=== PATIENT | male | born 1955 | race Caucasian/White ===

== ENCOUNTER → 2019-05-22 10:59 | Outpatient (CLI) | payer MEDICARE, OTHER, SELFPAY ==
[2019-05-22 12:10] LABS: C-Reactive Protein Quant 2.2 mg/dL (<1.0)
[2019-05-22 12:39] LABS: Basophils Absolute Auto 0 /uL (0-100); Basophils Percent Auto 0.3 % (0-2); Eosinophils Absolute Auto 0 /uL (0-450); Eosinophils Percent Auto 0.5 % (2-4); Hematocrit 49.8 % (41-53); Hemoglobin 17.3 g/dL (13.5-17.5); Lymphocytes Absolute Auto 1000 /uL (1100-4500); Lymphocytes Percent Auto 13.3 % (25-40); Mean Corpuscular HGB Conc 34.8 % (30-36); Mean Corpuscular Hemoglobin 31.3 PG (26-34); Mean Corpuscular Volume 90.1 fL (80-100); Monocytes Absolute Auto 500 /uL (0-900); Monocytes Percent Auto 6.5 % (3-14); Neutrophils Absolute Auto 5800 /uL (1500-7000); Neutrophils Percent Auto 79.4 % (50-75); Platelet Count 243 X10^3/uL (150-400); Red Blood Cell Count 5.53 X10^6/uL (4.5-5.9); Red Cell Distribution Width 12.8 % (11.6-14.8); White Blood Cell Count 7.3 X10^3/uL (4.5-11.0)
[2019-05-22 12:58] LABS: Erythrocyte Sedimentation Rate 6 MM/HR (0-15)
[2019-05-22 13:06] LABS: Add Manual Diff / Slide Review SLIDE REVIEW; RBC Morphology Normal Morphology
== END ==
PROVIDERS: Referring Provider Orthopaedic Surgery; Visit Provider Orthopaedic Surgery
DX: L03.011 Cellulitis of right finger (principal); M79.644 Pain in right finger(s)
CPT/HCPCS: 36415; 85025; 85651; 86140

== ENCOUNTER 2019-05-23 15:37 | Observation (INO) | payer MEDICARE, OTHER, SELFPAY ==
[2019-05-22] VITALS (10 sets, daily range): BP systolic 114–137; BP diastolic 61–88; PULSE 69–80; RESP 12–20; TEMP 36.1–36.6; O2SAT 96–98; BMI 26.6
[2019-05-22] MEDS: LACTATED RINGERS 1,000 ML 42 ML IV (17:32)
--- NOTE | 2019-05-22 18:06 | PM.PREOP ---
Pre-operative Note Interval Note History & Physical reviewed/Exam performed by Physician: Yes Changes to H&P: No H&P completed within 30 days and has changed as indicated here:: Plan for right long finger irrigation and debridement with removal of finger nail. Plan for post-op abx and close follow up.
--- NOTE | 2019-05-22 18:51 | SUR.OPER ---
Supine on padded OR bed, head on pillow, nonoperative arm secured on padded arm boards at <90 degrees abduction, operative arm on hand table, legs uncrossed, safety belt at thigh, tape over blanket over lower legs.
[2019-05-22] MEDS: CEFAZOLIN 2 GM/100 ML FROZ.PIGGY IV (19:22)
[2019-05-22] MEDS: BUPIVACAINE 0.25% W/ EPI 30 ML VIAL INJ (19:30)
--- NOTE | 2019-05-22 19:40 | P.OP_ITS ---
Operative Date/Time/Diagnoses Date of procedure: 05/22/19 Time of procedure: 19:40 Pre-op diagnosis: Paronychia right long finger Post-op diagnosis: same Procedure & Clinicians Procedure: right long finger irrigation and debridement and fingernail removal Same procedure as scheduled: Yes Indications: large tense paronychia Surgeon: Pérez Shah Click Yes if Unassisted: Yes Anesthesia Type: General Operative Notes Findings: large paronychia right long finger Closure Type: primary Specimen(s): other (3x swabs) Estimated Blood Loss (mL): 5 Blood products transfused: none Procedure in detail: Patient was met in the preoperative holding area where the site and side of surgery were marked and the consent for surgery was reviewed and all questions were answered. Patient was then brought back in the operating room where he was placed on the operating room table and induced under general anesthesia. The right upper extremity then prepped and draped in normal sterile fashion. A surgical time- out was performed verifying the site and side of surgery as well as the name of the patient. An Esmarch was used as a wrist tourniquet. A 15 blade scalpel used to open up the paronychial fold at the edge of the nail. Several cc of gross purulence was expressed at this time. Three tissue swabs were sent for culture. The devascularized skin overlying the abscess pocket was removed with scissors and the nail was lifted from the nail bed with a cleaned pair of Metzenbaum scissors. At this point there are no deep pockets or areas of purulence that had not already been debrided. 1 L of normal saline was washed over the wound bed and scrubbed. [place] through the finger was soaked in Betadine for 2 minutes and then the rest of the normal saline was washed over the nail bed. The Esmarch was removed there are 2 small spots of brisk bleeding which were coagulated using electrocautery. 0 form dressing was then placed over the nail bed and 4 x 4 dressings were placed on the finger followed by a cast padding and a Coban dressing. Complications: none Post-operative Condition: stable Disposition: PACU Plan for aftercare: Patient will receive 24 hours of IV antibiotics plan will be for him to discharge home tomorrow with Keflex.
--- NOTE | 2019-05-22 21:04 | SUR.PHASEI ---
Patient taken to floor in good condition. Left in stable condition with receiving RN at bedside.
[2019-05-22] MEDS: ACETAMINOPHEN 325 MG TABLET 975 MG PO (21:25)
[2019-05-22] MEDS: LACTATED RINGERS 1,000 ML 125 ML IV (21:26)
[2019-05-23 00:10] VITALS: BP 122/74; PULSE 72; RESP 16; TEMP 36.5; O2SAT 96
[2019-05-23] MEDS: OXYCODONE IR 5 MG TABLET PO ×4 (02:08→18:47)
[2019-05-23] MEDS: CLINDAMYCIN 900 MG/50 ML PIGGYBACK 50 MG IV ×3 (02:30→18:47)
[2019-05-23 05:00] VITALS: BP 91/66; PULSE 73; RESP 16; TEMP 36.5; O2SAT 100
--- NOTE | 2019-05-23 05:31 | PC.NURSE ---
House Nurse Note: Resting in bed. Vital signs stable. Up to bathroom independently, voided. Dressing to rt middle finger is cdi. Rt hand is elevated on two pillows. Medicated for pain at 0208.
[2019-05-23] MEDS: LACTATED RINGERS 1,000 ML 125 ML IV (06:14)
[2019-05-23 07:35] LABS: Hemoglobin 15.6 g/dL (13.5-17.5); Mean Corpuscular HGB Conc 34.7 % (30-36); Mean Corpuscular Volume 89.4 fL (80-100); Platelet Count 223 X10^3/uL (150-400); Red Blood Cell Count 5.03 X10^6/uL (4.5-5.9); White Blood Cell Count 6.3 X10^3/uL (4.5-11.0)
[2019-05-23] MEDS: ACETAMINOPHEN 325 MG TABLET 975 MG PO ×2 (09:07→14:19)
[2019-05-23] MEDS: LOSARTAN 50 MG TABLET 125 MG PO (09:07)
--- NOTE | 2019-05-23 09:29 | PM.PNPO.1 ---
Subjective Subjective Date Patient Seen: 05/23/19 Time Patient Seen: 09:29 Interval history: POD #1 s/p right long finger irrigation and debridement and fingernail removal w Dr. Shah. Per patient, no pain in R hand. Complains of mild swelling in R index finger. Voiding without difficulty or assistance. Denies fever, chills, dry cough, chest pain, shortness of breath, nausea, vomiting, numbness, tingling. Exam Vital Signs (past 8 hours): - 05/23/19 05:00 Temperature 97.7 F Pulse Rate 73 Respiratory Rate 16 Blood Pressure 91/66 Pulse Oximetry 100 Oxygen Delivery Method Room Air Oxygen Flow Rate 0 Narrative Exam Narrative: 63 yo M is laying comfortably in bed, in no apparent distress. A&Ox3. Splint is CDI on R long finger. R index finger is mildly swollen. R hand skin is pink, warm, smooth to touch, no peripheral cyanosis. Capillary refill <2sec in all 5 digits. Radial pulse 2+ BL. Sensory function grossly intact to light touch in UE BL. Objective Labs Result Diagrams: 05/23/19 06:24 Labs: Laboratory Results - last 24 hr 05/23/19 06:24 WBC 6.3 RBC 5.03 Hgb 15.6 Hct 45.0 MCV 89.4 MCH 31.0 MCHC 34.7 RDW 13.0 Plt Count 223 Assessment & Plan Post-op Postoperative Procedures: Procedures Operation Date: 05/22/19 18:00 Actual Procedures Side Surgeon p Complex Incision and Drainage of felon , middle finger Right Pérez Shah MD Postoperative day: 1 Postoperative status: doing well Postoperative plan: discharge Postoperative plan narrative: Patient will discharge home today after completing 24h course of IV antibiotics Discharge home with Clindamycin 300mg QID x 2 weeks Pain control - tramadol 50mg q6h #15, ibuprofen 400mg and tylenol 500mg q4h PRN, ice and elevation He will follow up with Dr. Shah in 1 week Time Spent With Patient Time with patient: less than 15 minutes
--- NOTE | 2019-05-23 11:20 | CM.DANOTE ---
DCP assessment: EMR reviewed: Patient is a 63 yr old male who was admitted for cellulites of the right hand and fingers, went to surgery 05/22/[address] Shah. Patient does not currently have a PCP. CM/Rn gave patient PCP information for [facility], [facility] and [facility]. Cm/Rn met with patient at the bedside and explained role. Patient was alert and orientedX3 at time of visit. patient kevin was at the bedside and participated in D/C planning. I: medicare and commercial insurance Plan: D/C home with . Attend OP rehab for his had following post op appointment next Saturday. No identified D/C planning needs noted. CM department will follow to assist with any d/c planning needs that may arise. Katelin Barahona RN Discharge Planning/Care Management CM Discharge Assessment Start: 05/23/19 11:07 Freq: Status: Active Protocol: Document 05/23/19 11:08 HS (Rec: 05/23/19 11:19 HS [id number]) Discharge Planning Assessment Assigned Warehouse Worker Katelin Barahona RN DPOA/Assigned Designee Name Kevin Riggins () Contact Information [phone] Advance Directives? No History Provided By Patient,Medical Record Prior Living Arrangements House Household Members spouse Type of transporation used prior to Drives own vehicle admit Independent with ADL's Yes Is patient alert and oriented? Yes Caregiver for Another No Patient/Family Preference OP PT Therapy Discharge Plan Home Referrals Initiated None needed Whiteboard Updated in Patient Room with Yes name and ext. # of Warehouse Worker Review Status In Process Next Review Type Continued Stay Review
[2019-05-23 12:00] VITALS: BP 119/72; PULSE 81; RESP 16; TEMP 37.1; O2SAT 95
--- NOTE | 2019-05-23 14:04 | OT.IP.EVAL ---
Current Diagnoses Cellulitis of right finger (05/22/19) Surgery Performed Operation Date: 05/22/19 18:00 Actual Procedures p Complex Incision and Drainage of felyue , middle finger(Right) - Pérez Shah MD Occupational Therapy Inpatient Evaluation/Re-Eval M1 PT/OT-IP Prior Functional Status Start: 05/23/19 16:12 Freq: NEEDED Status: Active Protocol: Document 05/23/19 16:12 CGR (Rec: 05/23/19 16:21 CGR [id number]) Medical Review Prior Functional Status Communication Pt is an effective verbal communicator Mobility and Gait Pt was IND without AD Activities of Daily Living and IADL's Pt was IND without AD Social History Household Members spouse Living Arrangements House Number of Floors (Floors) Two Floors Number of Stairs To Enter/Railing? 17 stairs to enter with railing on L assending. Pt can stay on the main level once in. Home Environment Standard Height Toilet,Walk in Shower Employment Status Retired Additional Social History Comment Pt has a flat bed and is a retired [employer]. M2 OT-IP Current Condition Start: 05/23/19 16:12 Freq: Status: Active Protocol: Document 05/23/19 16:12 CGR (Rec: 05/23/19 16:21 CGR [id number]) Occupational Therapy Current Condition Current Condition Evaluation Date 05/23/19 Treatment Diagnosis I&D of R middle finger. Diagnosis Onset Date 05/22/19 M3 OT- IP Subjective and Pain Start: 05/23/19 16:12 Freq: Status: Active Protocol: Document 05/23/19 16:12 CGR (Rec: 05/23/19 16:21 CGR [id number]) OT- Subjective Occupational Therapy Visit Type Type Initial Evaluation Visit Start Time 13:40 Visit Stop Time 14:04 Total Visit Minutes 24 OT Pain Assessment Pain When Pain Assessed At Rest Pain Present Pain Present Pain Reported Location right middle finger Intensity 2 Scale Used Numeric (1 - 10) Management Techniques Elevation,Modification of Treatment,Timing of Activity with Medications M4 OT- IP ADL's Start: 05/23/19 16:12 Freq: Status: Active Protocol: Document 05/23/19 16:12 CGR (Rec: 05/23/19 16:21 CGR [id number]) OT [id number] Comments OT Self-Feeding Comments Not meal time OT ADL-Grooming Comments OT Grooming Comments Pt simulated Ind with washing face and brushing hair. OT ADL-Oral Care Comments Oral Care Comments Pt simulated IND with brushing teeth. OT ADL-Dressing General Eval Upper Body Dressing Ability Independent Lower Body Dressing Ability Independent OT ADL-Toileting General Evaluation Toileting Ability Independent OT ADL-Bathing Comments OT Bathing Comments Not performed in this session. M5 OT- IP IADL's Start: 05/23/19 16:12 Freq: Status: Active Protocol: Document 05/23/19 16:12 CGR (Rec: 05/23/19 16:21 CGR [id number]) OT-Instrumental Activities of Daily Living Deficits IADL Deficits Identified No Deficits Home Safety Awareness Awareness of Need for Assistance at Home Good Awareness Ability to Problem Solve Emergency Able to Problem Solve Situations Medication Management Medication Management No Deficits Identified Money Management Money Management No Deficits Identified Meal Preparation Meal Preparation No Deficits Identified Operations Controller Operations Controller No Deficits Identified M6 OT- IP Functional Cognition Start: 05/23/19 16:12 Freq: Status: Active Protocol: Document 05/23/19 16:12 CGR (Rec: 05/23/19 16:21 CGR [id number]) Cognitive Factors Limiting Selfcare Function Cognitive Ability Level of Alertness Alert Patient Orientation Name,Age,Birthday,Month,Date, Year,Day of Week,Place, Situation Attention Span Ability Capable of Focused Attention, Capable of Sustained Attention Ability to Follow Commands Able to Follow Multi-Step Commands Memory Description No Deficits Noted Safety Awareness No Deficits Noted Problem Solving Ability No deficits Noted OT- Vision and Hearing OT- Hearing Assessment OT- Hearing Assessment WFL OT- Vision Assessment Visual Acuity Glasses All The Time Visual Attentiveness WFL Occular Pursuits WFL Visual Convergence WFL Visual [place] WFL Vision Assessment Comments Pt has transition bifocals. M7 OT- IP Mobility and Balance Start: 05/23/19 16:12 Freq: Status: Active Protocol: Document 05/23/19 16:12 CGR (Rec: 05/23/19 16:21 CGR [id number]) OT- Bed Mobility Assessment Rolling Type of Rolling Roll to Right Level of Assistance Independent Supine to Sit Supine to Sit Assist Independent Scooting Scooting to Edge of Bed Independent OT-Transfer Assessment Sit to and From Stand Sit to and from Stand Independent Transfers Transfer Ability Independent Technique Transfer Destination Bed,Chair,Toilet Transfer Technique Stand Step Pivot Comments Mobility Comments No mobility concerns OT- Gait Assessment Gait Gait Assistance Required: Independent Comments Gait Ability Comments No mobility concerns OT- Balance Assessment Sitting Balance and Reactions Static Sitting Balance Ability Normal Dynamic Sitting Balance Ability Normal Standing Balance and Reactions Static Standing Balance Ability Normal Dynamic Standing Balance Ability Normal M8 OT- IP Objective Assessments Start: 05/23/19 16:12 Freq: Status: Active Protocol: Document 05/23/19 16:12 CGR (Rec: 05/23/19 16:21 CGR [id number]) OT Gross Range of Motion Upper Extremity Range of Motion Assessment Within Functional Limits ROM Impairments with the exception of the R middle finger as it is wrapped in gauze OT Strength Upper Extremity Strength Assessment Within Functional Limits Comments Strength Comments grossly 4+/5 OT- Coordination Assessment Upper Extremity Finger to Nose Test Within Functional Limits Finger Tapping Test Within Functional Limits OT-Muscle Tone Assessment Muscle Tone WNL Yes OT Sensation Assessment Edema Edema Absent M9 OT- IP Assessment and Plan Start: 05/23/19 16:12 Freq: Status: Active Protocol: Document 05/23/19 16:12 CGR (Rec: 05/23/19 16:21 CGR [id number]) OT Summary Assessment and Plan Potential Rehabilitation Potential Excellent Analytic Complexity at Evaluation Low Summary OT Impairments Pain,Range of Motion,Strength, Coordination Progress Towards Goals Progressing Toward Goals,Safe For Discharge Assessment Summary Pt presents as a low complexity evaluation s/p I&D to the R middle finger. Pt now getting IV antibiotics. Educated on hand exercises to maintain ROM and scar management once the wound is healed. Pt states understanding. No further OT needs. Frequency of Treatment Frequency Of Treatment Discharge Discharge Recommendations OT Discharge Recommendations Home Transportation Needs at Discharge Private Vehicle
--- NOTE | 2019-05-23 14:35 | PC.NURSE ---
Patient resting in chair. A/Ox3. IV rate changed to TKO, maintained d/t difficulty flushing after ABX administration. Patient is taking fluids orally. PRN pain medication administered. Right hand is still swollen, dsg is CDI, patient c/o slight numbness in right ring finger. Hand elevated on two pillows to minimize swelling. Patient is afebrile, vital signs are WNL.
--- NOTE | 2019-05-23 15:16 | PT-IP ANOTE ---
received PT eval order and reviewed EMR. pt is in the hospital s/p R middle finger I&D. per nurses' note, pt is SBA with mobility in room without AD. Talked pt PA regarding pt's specific PT needs and stated that he does not think pt needs PT. informed PA that if the doctor wants therapy for the finger or ADL needs, pt will need OT eval order. PA stated that he will discharge PT eval order. Checked on PT eval order and PA completed the order. No PT indicated at this time.
[2019-05-23 15:40] VITALS: BP 118/63; PULSE 75; RESP 16; TEMP 36.6; O2SAT 95
[2019-05-23 19:30] VITALS: BP 138/70; PULSE 77; RESP 17; TEMP 36.7; O2SAT 98
--- NOTE | 2019-05-23 20:55 | PC.NURSE ---
Patient was discharged via private car with . Discharge instructions, including need to follow up in [address] Shah, given to patient and . Belongings collected by . IV removed intact, no tele present. No complaints of pain at discharge.
== END 2019-05-23 20:15 | disposition home or self-care (01) ==
LOC: OR 05-24 07:56
PROVIDERS: Admitting Provider Orthopaedic Surgery Adult Reconstructive Orthopaedic Surgery; Referring Provider Orthopaedic Surgery Adult Reconstructive Orthopaedic Surgery; Visit Provider Orthopaedic Surgery Adult Reconstructive Orthopaedic Surgery
PROC: (CPT 11720; principal; 2019-05-22 18:00)
DX: L03.011 Cellulitis of right finger (principal); I10 Essential (primary) hypertension; M79.644 Pain in right finger(s)
CPT/HCPCS: 11720; 36415; 85025; 85027; 85651; 86140; 87070; 87075; 87077; 87186; 87205; 97110; 97165; G0378; J0690; J1885; J2250; J2704; J3010

== ENCOUNTER → 2019-10-14 14:02 | Outpatient (CLI) | payer MEDICARE, OTHER, SELFPAY ==
[2019-05-22 21:11] VITALS: BMI 26.6
[2019-10-14 15:06] LABS: Add Manual Diff / Slide Review NO; Basophils Absolute Auto 0 /uL (0-100); Basophils Percent Auto 0.5 % (0-2); Eosinophils Absolute Auto 0 /uL (0-450); Eosinophils Percent Auto 0.7 % (2-4); Hematocrit 52.9 % (41-53); Hemoglobin 18.5 g/dL (13.5-17.5); Lymphocytes Absolute Auto 1900 /uL (1100-4500); Lymphocytes Percent Auto 26.2 % (25-40); Mean Corpuscular Hemoglobin 31.2 PG (26-34); Mean Corpuscular Volume 89.3 fL (80-100); Monocytes Absolute Auto 600 /uL (0-900); Monocytes Percent Auto 7.9 % (3-14); Neutrophils Absolute Auto 4700 /uL (1500-7000); Neutrophils Percent Auto 64.7 % (50-75); Platelet Count 202 X10^3/uL (150-400); Red Blood Cell Count 5.92 X10^6/uL (4.5-5.9); Red Cell Distribution Width 12.8 % (11.6-14.8); White Blood Cell Count 7.2 X10^3/uL (4.5-11.0)
[2019-10-14 15:14] LABS: Hemoglobin A1C% w Est Avg Glu 5.3 % (4.0-6.0)
[2019-10-14 15:19] LABS: Alanine Aminotransferase 38 IU/L (<50); Albumin Globulin Ratio 1.7 (1.0-2.8); Alkaline Phosphatase 85 U/L (38-126); Aspartate Aminotransferase 30 IU/L (17-59); BUN Creatinine Ratio 27.1 (6-22); Bilirubin Total 1.3 mg/dL (0.2-1.3); Blood Urea Nitrogen 23 mg/dL (9-20); Calcium 10.6 mg/dL (8.4-10.2); Carbon Dioxide 27 mmol/L (22-32); Chloride 98 mmol/L (98-107); Cholesterol 231 mg/dL (140-199); Estimated Glomerular Filt Rate > 60.0 mL/min (>60); Glucose 96 mg/dL (80-110); HDL Cholesterol 43 mg/dL (40-60); HEMOLYSIS < 15 (0-50); LDL Cholesterol Calculated 140 mg/dL (<100); Potassium 4.3 mmol/L (3.4-5.1); Sodium 136 mmol/L (137-145); Triglycerides 241 mg/dL (35-150)
[2019-10-14 15:48] LABS: Prostate Specific Antigen Scrn 1.17 ng/mL (0.1-4.0)
[2019-10-14 15:50] LABS: TSH w/ Reflex to FT4 2.16 uIU/mL (0.47-4.68)
== END ==
PROVIDERS: Referring Provider Family Medicine; Visit Provider Family Medicine
DX: E78.5 Hyperlipidemia, unspecified (principal); I10 Essential (primary) hypertension; R10.9 Unspecified abdominal pain; Z12.5 Encounter for screening for malignant neoplasm of prostate; Z13.220 Encounter for screening for lipoid disorders; Z13.228 Encounter for screening for other metabolic disorders; Z13.29 Encounter for screening for other suspected endocrine disorder; Z76.89 Persons encountering health services in other specified circumstances
CPT/HCPCS: 36415; 80053; 80061; 83036; 84443; 85025; G0103

== ENCOUNTER → 2019-12-17 08:12 | Outpatient (CLI) | payer MEDICARE, OTHER, SELFPAY ==
[2019-05-22 21:11] VITALS: BMI 26.6
--- NOTE | 2019-12-17 08:13 | DI.US.S_ITS ---
PROCEDURE: US ABDOMEN COMPLETE INDICATIONS: ABDOMEN AND PELVIC PAIN TECHNIQUE: Real-time scanning was performed of the abdominal and retroperitoneal organs, with image documentation. COMPARISON: None. FINDINGS: Liver: Liver is normal in size and homogeneous in echotexture. Gallbladder: Gallbladder is sonographically normal. No gallstones. No gallbladder wall thickening. No pericholecystic fluid. No sonographic Villarreal sign. Biliary ducts: Intrahepatic bile ducts are non-dilated. Extrahepatic bile duct caliber measures 2.5 mm. Normal is 6-7 mm or less in diameter, or 10 mm or less post-cholecystectomy. Pancreas: Visualized portions of the pancreas are sonographically normal. Spleen: Spleen is normal in size and homogeneous in echotexture. Kidneys: Kidneys are normal in size and echotexture. Right kidney measures 10.3 cm long; left kidney measures 11.2 cm long. No hydronephrosis or nephrolithiasis. No solid masses. 1.0 x 0.7 x 1.5 centimeter complex cyst noted in the midpole of the left kidney. Aorta: Visualized aorta is normal in caliber at less than 3 cm. Iliacs: Proximal common iliac arteries are normal in caliber at less than 2.5 cm. IVC: Intrahepatic inferior vena cava is patent. Miscellaneous: No free abdominal fluid. IMPRESSION: 1. No sonographic evidence of cholelithiasis or cholecystitis. 2. No hydronephrosis. 3. 1.1 x 0.7 x 1.5 centimeter complex left renal cyst. Recommend CT scan of the abdomen with and without contrast (renal protocol) for definitive characterization Dictated by: Lu Gillespie MD, PhD on 12/17/2019 at 17:07 Approved by: Lu Gillespie MD, PhD on 12/17/2019 at 17:08
== END ==
PROVIDERS: PCP Family Medicine; Referring Provider Registered Nurse; Visit Provider Registered Nurse
DX: R10.9 Unspecified abdominal pain (principal); N28.1 Cyst of kidney, acquired
CPT/HCPCS: 76700

== ENCOUNTER → 2019-12-23 10:29 | Outpatient (CLI) | payer MEDICARE, OTHER, SELFPAY ==
[2019-05-22 21:11] VITALS: BMI 26.6
[2019-12-23 11:40] LABS: BUN Creatinine Ratio 20.4 (6-22); Blood Urea Nitrogen 20 mg/dL (9-20); Estimated Glomerular Filt Rate > 60.0 mL/min (>60)
[2019-12-23 11:56] LABS: Alanine Aminotransferase 40 IU/L (<50); Albumin Globulin Ratio 1.6 (1.0-2.8); Alkaline Phosphatase 91 U/L (38-126); Aspartate Aminotransferase 30 IU/L (17-59); BUN Creatinine Ratio 21.9 (6-22); Blood Urea Nitrogen 21 mg/dL (9-20); Calcium 10.3 mg/dL (8.4-10.2); Carbon Dioxide 31 mmol/L (22-32); Chloride 100 mmol/L (98-107); Estimated Glomerular Filt Rate > 60.0 mL/min (>60); Globulin 3.1 g/dL (1.7-4.1); Glucose 106 mg/dL (80-110); HEMOLYSIS < 15 (0-50); Potassium 4.7 mmol/L (3.4-5.1); Sodium 139 mmol/L (137-145); Total Protein 8.1 g/dL (6.3-8.2)
== END ==
PROVIDERS: PCP Family Medicine; Referring Provider Registered Nurse; Visit Provider Registered Nurse
DX: I10 Essential (primary) hypertension (principal); R10.9 Unspecified abdominal pain
CPT/HCPCS: 36415; 80053; 82565; 84520

== ENCOUNTER → 2019-12-24 11:39 | Outpatient (CLI) | payer MEDICARE, OTHER, SELFPAY ==
[2019-05-22 21:11] VITALS: BMI 26.6
--- NOTE | 2019-12-24 11:40 | DI.CT.S_ITS ---
PROCEDURE: CT ABDOMEN WO/W CON INDICATIONS: abdominal pain TECHNIQUE: Optional 5 mm thick noncontrast images acquired from the diaphragm to the iliac crests. After the administration of intravenous contrast, 5 mm thick images again acquired from the diaphragm to the iliac crests in the arterial and urographic phases. 5 mm thick coronal and sagittal reformats were then acquired. For radiation dose reduction, the following was used: automated exposure control, adjustment of mA and/or kV according to patient size. COMPARISON: [facility], US, US ABDOMEN COMPLETE, 12/17/2019, 8:46. FINDINGS: Image quality: Excellent. Lung bases: Lung bases are clear. Heart size is normal. Genitourinary: No intrarenal calcifications. The kidneys demonstrate horseshoe morphology with a small tissue bridge at the level of the aortic bifurcation. No evidence of hydronephrosis. There are a few small cortical cysts arising from each upper pole moiety. The largest cyst measures about 11 mm and is in the left midpole, potentially the lesion detected by ultrasound. No solid renal lesions. There is symmetric uptake and excretion of IV contrast. The ureters are nondilated. Other solid organs: Liver is normal in size and enhancement. Gallbladder is normal . Biliary system is non dilated. Pancreas enhances normally. Spleen is normal in size and enhancement. No adrenal nodules. Peritoneum and bowel: Unenhanced bowel loops are normal in wall thickness and caliber. Normal partially imaged appendix. No free fluid or air. Nodes and vessels: No retroperitoneal or mesenteric adenopathy by size criteria. Aorta and inferior vena cava are normal in caliber. Moderate abdominal aortic atherosclerotic calcification. Bones: No suspicious bony lesions. No vertebral body compression fractures. Degenerative changes in the spine. Miscellaneous: No ventral hernias. IMPRESSION: 1. The structure which appears to correspond to the lower pole left renal lesion on the ultrasound has characteristics of a simple cyst. 2. 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 3. Moderate abdominal aortic atherosclerotic calcification. Dictated by: Mary Azevedo M.D. on 12/24/2019 at 15:45 Approved by: Mary Azevedo M.D. on 12/24/2019 at 15:54
== END ==
PROVIDERS: PCP Family Medicine; Referring Provider Registered Nurse; Visit Provider Registered Nurse
DX: N28.9 Disorder of kidney and ureter, unspecified (principal); I70.0 Atherosclerosis of aorta
CPT/HCPCS: 74170

== ENCOUNTER → 2020-06-28 16:13 | Outpatient (CLI) | payer MEDICARE, OTHER, SELFPAY ==
[2019-05-22 21:11] VITALS: BMI 26.6
--- NOTE | 2020-06-28 16:17 | DI.MRI.S_ITS ---
PROCEDURE: MR LUMBAR SPINE WO CON INDICATIONS: LOW BACK PAIN TECHNIQUE: Noncontrast sagittal T1 spin echo and T2 fast echo, sagittal STIR, axial T1 and T2 fast spin echo through the lumbar spine. In cases with scoliosis, additional coronal T2 fast spin echo may be performed. COMPARISON: [facility], CT, CT ABDOMEN WO/W CON, 12/24/2019, 11:49. FINDINGS: Image quality: Excellent. Alignment and Curvature: There is minimal retrolisthesis seen at the L2-L3, L4-L5 and L5-S1 levels. Bone Marrow: Marrow is of normal overall signal. No acute vertebral body compression fractures. Spinal Cord: Conus medullaris terminates at the L1 level. Visualized cord demonstrates normal signal and size. Paraspinous Soft Tissues: No paravertebral masses. A horseshoe kidney is incidentally noted. T12-L1: Moderate loss of disc height is seen. Loss of disc signal is seen. Bridging endplate osteophytes are seen. Mild generalized disc bulge is seen. Mild facet joint hypertrophy is seen. There is [id number] left-sided and moderate right-sided neural foraminal narrowing seen. Mild central canal narrowing is seen. L1-L2: The disc height is well-preserved. Loss of disc signal is seen at this level. Bridging endplate osteophytes are seen. Mild generalized disc bulge is seen. No significant neural foraminal or central canal narrowing can be seen. L2-L3: The disc height is well-preserved. Loss of disc signal is seen at this level. Mild disc bulge is seen, which is eccentric to the right. Mild facet joint hypertrophy is seen. There is moderate left-sided and moderate to severe right-sided neural foraminal narrowing seen. Mild central canal narrowing is seen. L3-L4: The disc height is well-preserved. Loss of disc signal is seen at this level. Moderate generalized disc bulge is seen. Moderate facet joint hypertrophy is seen. There is at least moderate bilateral neural foraminal narrowing seen, right worse than left. There is a degree of compression seen upon the exiting nerve roots. Moderate central canal narrowing is seen. L4-L5: At least moderate loss of disc height and disc signal can be seen. Reactive marrow endplate changes are seen, which are hyperintense on T1-weighted and T2-weighted imaging and most consistent with fatty metaplasia (Modic type II changes). At least moderate disc bulge is seen, which is eccentric to the right. There is a focal disc extrusion seen involving the right foraminal region, which is best demonstrated on series 6, image 6. There is [id number]-gjzoapbk facet hypertrophy seen. There is moderate left-sided and moderate to severe right-sided neural foraminal narrowing seen. There is a degree of compression seen upon the exiting right L4 nerve root. Mild central canal narrowing is seen. L5-S1: There is at least moderate loss of disc height and disc signal seen. At least moderate disc bulge is seen, which is eccentric to the left. Mild to moderate facet hypertrophy can be seen. There is at least moderate bilateral neural foraminal narrowing seen at this level. A mild degree of compression can be seen upon the exiting nerve roots. Minimal central canal narrowing is seen. IMPRESSION: At the L4-L5 level, there is a right foraminal disc extrusion, with associated moderate to severe right-sided neural foraminal narrowing and associated exiting L4 nerve root compression. Milder degenerative changes are seen elsewhere. Dictated by: José Antonio Trinidad M.D. on 06/28/2020 at 16:35 Approved by: José Antonio Trinidad M.D. on 06/28/2020 at 16:41
== END ==
PROVIDERS: PCP Nurse Practitioner Family; Referring Provider Nurse Practitioner Family; Visit Provider Nurse Practitioner Family
DX: M51.26 Other intervertebral disc displacement, lumbar region (principal); M48.061 Spinal stenosis, lumbar region without neurogenic claudication; M48.07 Spinal stenosis, lumbosacral region; M47.816 Spondylosis without myelopathy or radiculopathy, lumbar region; M47.817 Spondylosis without myelopathy or radiculopathy, lumbosacral region
CPT/HCPCS: 72148

== ENCOUNTER → 2021-05-03 07:09 | Outpatient (CLI) | payer MEDICARE, OTHER, SELFPAY ==
[2019-05-22 21:11] VITALS: BMI 26.6
[2021-05-03 07:54] LABS: Add Manual Diff / Slide Review NO; Basophils Absolute Auto 0 /uL (0-100); Basophils Percent Auto 0.5 % (0-2); Eosinophils Absolute Auto 100 /uL (0-450); Eosinophils Percent Auto 2.2 % (2-4); Hematocrit 53.2 % (41-53); Hemoglobin 18.2 g/dL (13.5-17.5); Lymphocytes Absolute Auto 2200 /uL (1100-4500); Lymphocytes Percent Auto 37.4 % (25-40); Mean Corpuscular HGB Conc 34.3 % (30-36); Mean Corpuscular Hemoglobin 30.9 PG (26-34); Mean Corpuscular Volume 90.3 fL (80-100); Monocytes Absolute Auto 500 /uL (0-900); Monocytes Percent Auto 9.2 % (3-14); Neutrophils Absolute Auto 2900 /uL (1500-7000); Neutrophils Percent Auto 50.7 % (50-75); Platelet Count 225 X10^3/uL (150-400); Red Cell Distribution Width 12.6 % (11.6-14.8); White Blood Cell Count 5.8 X10^3/uL (4.5-11.0)
[2021-05-03 08:12] LABS: Erythrocyte Sedimentation Rate 1 MM/HR (0-15)
[2021-05-03 08:16] LABS: BUN Creatinine Ratio 22.6 (6-22); Blood Urea Nitrogen 24 mg/dL (9-20); C-Reactive Protein Quant < 0.5 mg/dL (<1.0); Calcium 9.8 mg/dL (8.4-10.2); Carbon Dioxide 32 mmol/L (22-32); Chloride 99 mmol/L (98-107); Estimated Glomerular Filt Rate > 60.0 mL/min (>60); Glucose 99 mg/dL (80-110); HEMOLYSIS < 15 (0-50); Potassium 3.9 mmol/L (3.4-5.1); Sodium 136 mmol/L (137-145)
[2021-05-03 08:17] LABS: Hemoglobin A1C% w Est Avg Glu 5.1 % (4.0-6.0)
[2021-05-03 08:20] LABS: Rheumatoid Factor 48.6 IU/mL (<12.0)
[2021-05-03 08:49] LABS: Thyroid Stimulating Hormone 2.72 uIU/mL (0.47-4.68)
[2021-05-03 08:58] LABS: Vitamin B12 433 pg/mL (239-931)
[2021-05-03 19:37] LABS: Hepatitis B Surface Antigen NEGATIVE s/c (NEGATIVE)
[2021-05-03 19:58] LABS: Hep C Virus Ab w/Reflex Quant NEGATIVE s/c (NEGATIVE)
[2021-05-04 19:10] LABS: Anti Thyroglobulin Antibody <1.0 IU/mL (0.0-0.9); Thyroid Peroxidase Antibodies 9 IU/mL (0-34)
[2021-05-05 17:48] LABS: ANA Screen, IFA Negative (.)
[2021-05-05 20:15] LABS: CCP Antibodies IgG/IgA 13 units (0-19)
== END ==
PROVIDERS: PCP Registered Nurse; Referring Provider Physical Medicine & Rehabilitation; Visit Provider Physical Medicine & Rehabilitation
DX: M47.816 Spondylosis without myelopathy or radiculopathy, lumbar region (principal); M05.9 Rheumatoid arthritis with rheumatoid factor, unspecified; M79.604 Pain in right leg; R20.2 Paresthesia of skin; R53.1 Weakness; M79.606 Pain in leg, unspecified; R73.09 Other abnormal glucose
CPT/HCPCS: 36415; 80048; 82607; 83036; 84443; 85025; 85651; 86038; 86140; 86200; 86376; 86430; 86800; 86803; 87340

== ENCOUNTER 2024-03-17 18:00 | Emergency (ER) | payer MEDICARE, OTHER, SELFPAY ==
[2019-05-22 21:11] VITALS: BMI 26.6
[2024-03-17 18:20] VITALS: BP 179/104; PULSE 111; RESP 15; TEMP 36.6; O2SAT 97; BMI 27.0
--- NOTE | 2024-03-17 19:36 | DI.RAD.S_ITS ---
PROCEDURE: XR KUB INDICATIONS: no bm x 2 days, recent T-spine surgery TECHNIQUE: One view of the abdomen acquired. COMPARISON: None. FINDINGS: Surgical changes and devices: Postsurgical changes are noted in lower thoracic spine. There is prior right total hip arthroplasty.. Bowel: Mild fecal stasis in the colon is seen. No evidence of bowel obstruction or gross pneumoperitoneum. Soft tissues: No suspicious abdominal calcifications. Visualized solid organ contours appear normal in size. Bones: No suspicious bony lesions. IMPRESSION: No significant stool old. No bowel obstruction or gross free air. Dictated by: Ulices Styles M.D. on 03/17/2024 at 20:44 Approved by: Ulices Styles M.D. on 03/17/2024 at 20:44
--- NOTE | 2024-03-17 19:36 | ED_ITS ---
HPI - Abdominal Pain General Chief Complaint: Abdominal Pain Stated Complaint: sx on , no BM since Time Seen by Provider: 03/17/24 18:53 Mode of arrival: Ambulatory History of Present Illness HPI narrative: 68-year-old male presents for constipation for 5 days. Two days prior patient had thoracic spinal surgery with Dr. Eaton at [facility]. He has been on pain medications and MiraLax since that time but has not been able to have a bowel movement. He saw his primary care provider today, who ordered an abdominal x-ray. He was referred to the ER because allegedly obstruction could not be ruled out. Patient denies history of abdominal surgeries. He states that on the way to the hospital he passed gas and ?felt some movement?. Related Data Home Medications Medication Instructions Recorded Confirmed sildenafil 25 mg tablet 25 mg PO DAILY PRN 10/14/19 12/10/19 doxycycline hyclate 100 mg capsule 100 mg PO DAILY 12/10/19 12/10/19 Previous Rx's Medication Instructions Recorded acetaminophen 500 mg tablet 500 mg PO Q4H PRN pain #30 tabs 05/23/19 (Tylenol Extra Strength) pravastatin 20 mg tablet 20 mg PO BEDTIME #90 tabs 12/17/19 losartan 100 1 tab PO DAILY hypertension #90 02/22/20 mg-hydrochlorothiazide 25 mg tablet tabs Allergies Allergy/AdvReac Type Severity Reaction Status Date / Time metoclopramide [From Reglan] AdvReac Severe nerves Verified 12/10/19 13:35 felt on fire prochlorperazine AdvReac Severe nerves Verified 12/10/19 13:35 [From Compazine] felt on fire Patient History Medical History Hypercalcemia Hyperlipidemia Testicular cancer (~1983) Surgical History Anesthesia History of hand surgery (~05/2019) History of testicular surgery (~1983) History of arthroplasty of finger of right hand (~2001) H/O left knee surgery (~2016) Family History Father Hypertension Brother Hypertension Sister Hypertension Sister Hypertension Mother No problems noted. Social History household members: spouse Smoking Status: Never smoker alcohol intake: former (Quit 1986 ) substance use type: marijuana (candies every once in a while ) Smoking Status: Never smoker Exam Initial Vital Signs Initial Vital Signs: Vital Signs Temperature 97.9 F 03/17/24 18:20 Pulse Rate 111 H 03/17/24 18:20 Respiratory Rate 15 03/17/24 18:20 Blood Pressure 179/104 H 03/17/24 18:20 Pulse Oximetry 97 03/17/24 18:20 Oxygen Delivery Method Room Air 03/17/24 18:20 Const: Awake, alert, no acute distress, nontoxic appearing Cardiac: regular rate, regular rhythm RESP: unlabored, clear bilaterally, no wheezing GI: Soft, nontender, nondistended MSK back: Surgical site clean, dry, intact, full range of motion Skin: Warm, Dry, intact, no rashes Neuro: AO x3, CN II-XII grossly intact, moves all extremities Course Orders Ordered: Discontinued Medications Glycerin (Glycerin Supp Adult 1 Supp) 1 each IN NOW ONE Stop: 03/17/24 19:18 Last Admin: 03/17/24 20:21 Dose: 1 each Documented By: JOELLEN Lactulose (Lactulose 20 Gm/30 Ml Solution) 20 gm PO NOW ONE Stop: 03/17/24 19:18 Last Admin: 03/17/24 20:21 Dose: 20 gm Documented By: JOELLEN Ondansetron HCl (Ondansetron 4 Mg/2 Ml Inj) 4 mg IV NOW PRN PRN Reason: Nausea And Vomiting Last Admin: 03/17/24 20:17 Dose: 4 mg Documented By: JOELLEN Ondansetron HCl (Ondansetron 4 Mg Odt) 4 mg PO NOW PRN PRN Reason: Nausea And Vomiting Oxycodone HCl (Oxycodone Ir 5 Mg Tablet) 5 mg PO NOW ONE Stop: 03/17/24 20:57 Last Admin: 03/17/24 21:00 Dose: 5 mg Documented By: JOELLEN Vital Signs Vital signs: Vital Signs - 8 hr 03/17/24 18:20 Temperature 97.9 F Pulse Rate 111 H Respiratory Rate 15 Blood Pressure 179/104 H Pulse Oximetry 97 Oxygen Delivery Method Room Air MDM - Abdominal Pain Differential Diagnosis Differential diagnosis: Likely abdominal pain, constipation and other (post operative ileus) Lab Data 03/17/24 20:10 03/17/24 20:10 Labs: Lab Results 03/17/24 Range/Units 20:10 WBC 8.1 (4.5-11.0) X10^3/uL RBC 5.07 (4.5-5.9) X10^6/uL Hgb 15.9 (13.5-17.5) g/dL Hct 46.3 (41-53) % MCV 91.3 (80-100) fL MCH 31.4 (26-34) PG MCHC 34.4 (30-36) % RDW 12.5 (11.6-14.8) % Plt Count 288 (150-400) X10^3/uL Neut % (Auto) 78.9 H (50-75) % Lymph % (Auto) 12.8 L (25-40) % [place] % (Auto) 7.3 (3-14) % Eos % (Auto) 0.7 L (2-4) % Baso % (Auto) 0.3 (0-2) % Neut # (Auto) 6400 (0546-7831) /uL Lymph # (Auto) 1000 L (9891-8213) /uL [place] # (Auto) 600 (0-900) /uL Eos # (Auto) 100 (0-450) /uL Baso # (Auto) 0 (0-100) /uL Sodium 135 L (137-145) mmol/L Potassium 5.1 (3.4-5.1) mmol/L Chloride 96 L (98-107) mmol/L Carbon Dioxide 26 (22-32) mmol/L BUN 21 H (9-20) mg/dL Creatinine 0.88 (0.66-1.25) mg/dL Estimated GFR > 60 (>60) mL/min BUN/Creatinine Ratio 23.9 H (6-22) Glucose 91 (80-110) mg/dL Calcium 9.7 (8.4-10.2) mg/dL Total Bilirubin 1.2 (0.2-1.3) mg/dL AST 43 (17-59) IU/L ALT 41 (<50) IU/L Alkaline Phosphatase 76 (38-126) U/L Total Protein 7.7 (6.3-8.2) g/dL Albumin 4.5 (3.5-5.0) g/dL Globulin 3.2 (1.7-4.1) g/dL Albumin/Globulin Ratio 1.4 (1.0-2.8) Lipase 40 (23-300) U/L MDM Narrative Medical decision making narrative: Well-appearing patient with constipation after procedure. He was denying saddle anesthesia, reports normal ability to urinate, no lower extremity weakness. No signs or symptoms of cauda equina. Abdomen soft, no significant tenderness to deep palpation. Patient reporting pain at this time, however it was mostly due to his back surgery. He states that since yesterday he was not taken any pain medications because he was afraid to make his constipation worse. KUB negative for obstruction. Patient has no known risk factors for obstruction and by his own account he pass gas on the way to the emergency department. Patient relieved to know there was no obstruction. He was counseled to continue MiraLax and to add a stimulant laxative such as senna to his regimen. He was advised that if his back pain is bad he should take his prescribed medication, but to walk to help stimulate bowel movements. ED return precautions discussed at bedside. Patient expressed understanding of the plan and is in agreement at this time. All questions answered at the time of discharge. Discharge Plan Departure Patient Disposition: Home Clinical Impression: Constipation Instructions: DI for Constipation Activity Restrictions/Additional Instructions: Your x-ray today did not show any signs of obstruction. Continue to take MiraLax for constipation. I also recommend adding a stimulant laxative such as senna, which can be found over the counter, for constipation. Make sure that you walk frequently and drink plenty of fluids. Use the Zofran that you have at home as needed for nausea. You may continue to take your pain medications as needed so that you can function. Prescriptions: No Action losartan-hydrochlorothiazide 100-25 mg tablet 1 tab PO DAILY Qty: 90 0RF Rx Instructions: APPOINTMENT DUE FOR FURTHER REFILLS. THANK YOU! sildenafil 25 mg tablet 25 mg PO DAILY PRN Rx Instructions: administer 30 minutes to 4 hours before activity doxycycline hyclate 100 mg capsule 100 mg PO DAILY pravastatin 20 mg tablet 20 mg PO BEDTIME Qty: 90 3RF acetaminophen [Tylenol Extra Strength] 500 mg tablet 500 mg PO Q4H PRN (Reason: pain) Qty: 30 0RF Rx Instructions: take 1 tablet by mouth every 4 hours as needed for pain Referrals: Himanshu Cadet ARNP [Primary Care Provider] - Stand Alone Forms: Patient Portal/API/Survey
[2024-03-17] MEDS: ONDANSETRON 4 MG/2 ML INJ IV (20:17)
[2024-03-17 20:18] LABS: Add Manual Diff / Slide Review NO; Basophils Absolute Auto 0 /uL (0-100); Basophils Percent Auto 0.3 % (0-2); Eosinophils Absolute Auto 100 /uL (0-450); Eosinophils Percent Auto 0.7 % (2-4); Hematocrit 46.3 % (41-53); Hemoglobin 15.9 g/dL (13.5-17.5); Lymphocytes Absolute Auto 1000 /uL (1100-4500); Lymphocytes Percent Auto 12.8 % (25-40); Mean Corpuscular HGB Conc 34.4 % (30-36); Mean Corpuscular Hemoglobin 31.4 PG (26-34); Mean Corpuscular Volume 91.3 fL (80-100); Monocytes Absolute Auto 600 /uL (0-900); Monocytes Percent Auto 7.3 % (3-14); Neutrophils Absolute Auto 6400 /uL (1500-7000); Neutrophils Percent Auto 78.9 % (50-75); Platelet Count 288 X10^3/uL (150-400); Red Blood Cell Count 5.07 X10^6/uL (4.5-5.9); Red Cell Distribution Width 12.5 % (11.6-14.8); White Blood Cell Count 8.1 X10^3/uL (4.5-11.0)
[2024-03-17] MEDS: GLYCERIN SUPP ADULT 1 SUPP 1 EACH PR (20:21)
[2024-03-17] MEDS: LACTULOSE 20 GM/30 ML SOLUTION PO (20:21)
[2024-03-17 20:31] LABS: Alanine Aminotransferase 41 IU/L (<50); Albumin 4.5 g/dL (3.5-5.0); Albumin Globulin Ratio 1.4 (1.0-2.8); Alkaline Phosphatase 76 U/L (38-126); Aspartate Aminotransferase 43 IU/L (17-59); BUN Creatinine Ratio 23.9 (6-22); Bilirubin Total 1.2 mg/dL (0.2-1.3); Blood Urea Nitrogen 21 mg/dL (9-20); Calcium 9.7 mg/dL (8.4-10.2); Carbon Dioxide 26 mmol/L (22-32); Chloride 96 mmol/L (98-107); Estimated Glomerular Filt Rate > 60 mL/min (>60); Globulin 3.2 g/dL (1.7-4.1); Glucose 91 mg/dL (80-110); HEMOLYSIS < 15 (0-50); Lipase 40 U/L (23-300); Potassium 5.1 mmol/L (3.4-5.1); Sodium 135 mmol/L (137-145); Total Protein 7.7 g/dL (6.3-8.2)
[2024-03-17] MEDS: OXYCODONE IR 5 MG TABLET PO (21:00)
[2024-03-17 21:07] VITALS: BP 164/82; PULSE 82; RESP 18; O2SAT 99
== END 2024-03-17 21:06 | disposition home or self-care (01) ==
PROVIDERS: Emergency Provider Emergency Medicine; PCP Registered Nurse
DX: K59.00 Constipation, unspecified (principal); Z98.890 Other specified postprocedural states
CPT/HCPCS: 74018; 80053; 83690; 85025; 96374; 99284; J2405